=== PATIENT | female | born 1930 | race Caucasian/White ===

== ENCOUNTER 2017-02-08 11:37 | Inpatient (IN) | payer OTHER ==
[~2017-02-08] VITALS: Ht 167.6 cm; Wt 59.6 kg
[~2017-02-08 11:37] MED LIST: ETOMIDATE 20 MG/10 ML ONE; PROPOFOL 10 MG/ML, 100ML IV ONE; VECURONIUM 10 MG ONE
[2017-02-08] MEDS ORDERED: SODIUM CHLORIDE FLUSH 10ML SYR IVF ONE (12:00)
[2017-02-08] MEDS ORDERED: SODIUM CHLORIDE 0.9% 1,000ML IVBOLUS ONE ×2 (12:00→13:30)
[2017-02-08] MEDS ORDERED: PLEASE ENTER ALLERGIES MC SCH ×2 (12:30)
[2017-02-08] MEDS ORDERED: PLEASE ENTER HEIGHT AND WEIGHT MC SCH (12:30)
[2017-02-08 12:58] LABS: BLOOD UREA NITROGEN 82 mg/dL (7-18)
[2017-02-08 13:05] LABS: ASPARTATE AMINO TRANSFERASE 59 U/L (15-37)
[2017-02-08 13:43] LABS: IS PT STATUS REG ER OR PRE ER? YES
[2017-02-08] MEDS ORDERED: LOSA100T6 PO (13:50)
[2017-02-08] MEDS ORDERED: LEVO112T4 PO (13:50)
[2017-02-08] MEDS ORDERED: METO-99 PO (13:50)
[2017-02-08] MEDS ORDERED: LOVA40TA2 PO (13:54)
[2017-02-08] MEDS ORDERED: HYDR-3343 PO (13:54)
[2017-02-08] MEDS ORDERED: CEFTRIAXONE PMX 1GM/50ML 50 ML IVPB ONE (14:30)
[2017-02-08] MEDS ORDERED: methylPREDNISolone SOD SUCC 125 MG/2 ML ONE (14:34)
[2017-02-08 14:39] LABS: ABG COLLECTION SITE RIGHT RADIAL
[2017-02-08 14:40] LABS: COLLATERAL CIRCULATION TESTING NORMAL
[2017-02-08] MEDS ORDERED: CEFTRIAXONE PMX 1GM/50ML 50 ML ONE (14:42)
[2017-02-08] MEDS ORDERED: LABETALOL 5MG/ML, 20ML IVPush PRN (15:00)
[2017-02-08] MEDS ORDERED: BISACODYL 10 MG SUPP PR PRN (15:00)
[2017-02-08] MEDS ORDERED: ENOXAPARIN 40 MG/0.4 ML SQ SCH (15:00)
[2017-02-08] MEDS: methylPREDNISolone SOD SUCC 125 MG/2 ML IVPush SCH ×2 (15:12→21:19)
[2017-02-08] MEDS ORDERED: LIDOCAINE-MPF 1%, 2ML ENDO PRN (15:30)
[2017-02-08] MEDS: ALBUTEROL/IPRATROPIUM 2.5MG/0.5MG, 3 ML INLINE SCH ×3 (15:30→22:22)
[2017-02-08] MEDS ORDERED: PHARMACY MAY ADJ FOR RENAL FX MC SCH (15:30)
[2017-02-08] MEDS: SODIUM CHLORIDE 0.9% 1,000 ML IV SCH (15:31)
[2017-02-08] MEDS: PROPOFOL 100 ML IV PRN ×2 (15:36→22:46)
[2017-02-08] MEDS ORDERED: ENOXAPARIN 40 MG/0.4 ML ONE (16:56)
[2017-02-08 19:23] LABS: DAU SCREEN DISCLAIMER
[2017-02-08 19:49] LABS: IS PT STATUS REG ER OR PRE ER? NO
[2017-02-08] MEDS: FAMOTIDINE 20 MG/2 ML IVPush SCH (21:19)
[2017-02-08 23:12] VITALS: BP 142/46
[2017-02-08 23:30] VITALS: BP 128/72
[2017-02-09] MEDS: SODIUM CHLORIDE 0.9% 1,000 ML IV SCH ×3 (01:20→21:47)
[2017-02-09 01:25] LABS: IS PT STATUS REG ER OR PRE ER? NO
[2017-02-09] MEDS: ALBUTEROL/IPRATROPIUM 2.5MG/0.5MG, 3 ML INLINE SCH ×6 (03:30→22:00)
[2017-02-09] MEDS: methylPREDNISolone SOD SUCC 125 MG/2 ML IVPush SCH ×4 (03:51→21:19)
[2017-02-09 04:00] VITALS: BP 152/45
[2017-02-09 04:29] LABS: ABG COLLECTION SITE RIGHT RADIAL; COLLATERAL CIRCULATION TESTING NORMAL
[2017-02-09 04:55] LABS: ASPARTATE AMINO TRANSFERASE 46 U/L (15-37); BLOOD UREA NITROGEN 55 mg/dL (7-18)
[2017-02-09] MEDS: ASPIRIN 81 MG TABLET CHEW PO SCH (05:56)
[2017-02-09] MEDS ORDERED: ASPIRIN 325 MG TABLET EC PO SCH (06:00)
[2017-02-09] MEDS: FAMOTIDINE 20 MG/2 ML IVPush SCH (09:08)
[2017-02-09] MEDS: PROPOFOL 100 ML IV PRN ×2 (09:22→21:19)
[2017-02-09] MEDS ORDERED: hydrALAzine 20 MG/ML, 1ML IV PRN (11:00)
[2017-02-09] MEDS ORDERED: DIGOXIN 0.25 MG/ML, 2ML ONE (11:59)
[2017-02-09] MEDS ORDERED: DIGOXIN 0.25 MG/ML, 2ML IVPush ONE ×2 (12:00)
[2017-02-09] MEDS ORDERED: DILTIAZEM 5 MG/ML, 5ML ONE (12:13)
[2017-02-09] MEDS ORDERED: FILTER 0.22 MICRON IV PRN (12:30)
[2017-02-09] MEDS ORDERED: AMIODARONE 150 MG in DEXTROSE 5% 100 ML IV ONE ×2 (12:30→16:00)
[2017-02-09] MEDS ORDERED: DILTIAZEM 5 MG/ML, 5ML IVPush ONE (12:30)
[2017-02-09] MEDS ORDERED: SODIUM CHLORIDE 0.9%, 250ML IVBOLUS ONE (12:45)
[2017-02-09] MEDS ORDERED: HEPARIN 25,000 UNITS/500ML PMX 500 ML IV PRN (13:00)
[2017-02-09] MEDS ORDERED: HEPARIN 5,000 UNITS/ML, 1ML IV PRN (13:00)
[2017-02-09] MEDS ORDERED: HEPARIN 5,000 UNITS/ML, 1ML IV ONE (13:00)
[2017-02-09] MEDS ORDERED: MIDAZOLAM 1 MG/ML, 5ML ONE ×2 (14:18→17:58)
[2017-02-09] MEDS ORDERED: CEFAZOLIN 1,000 MG ONE (14:18)
[2017-02-09] MEDS ORDERED: CEFAZOLIN PMX 1GM/50ML 50 ML ONE (14:18)
[2017-02-09] MEDS ORDERED: LIDOCAINE 2%, 20ML ONE (14:18)
[2017-02-09] MEDS ORDERED: FENTANYL PF 100 MCG/2ML ONE ×2 (14:18→17:58)
[2017-02-09] MEDS ORDERED: PHENYLEPHRINE 10 MG/ML ONE (14:58)
[2017-02-09] MEDS ORDERED: SODIUM CHLORIDE 0.9%, 500ML IVBOLUS ONE ×2 (16:30→20:00)
[2017-02-09] MEDS: CEFTRIAXONE PMX 1GM/50ML 50 ML IV SCH (16:46)
[2017-02-09] MEDS ORDERED: ALBUTEROL SULFATE 2.5 MG/3 ML ONE (17:07)
[2017-02-09] MEDS ORDERED: NOREPINEPHRINE 1 MG/ML, 4ML ONE (17:23)
[2017-02-09] MEDS ORDERED: LIDOCAINE 1%, 20ML ONE (17:34)
[2017-02-09] MEDS ORDERED: NOREPINEPHRINE 4 MG in SODIUM CHLORIDE 0.9% 246 ML IV PRN (18:00)
[2017-02-09] MEDS ORDERED: LIDOCAINE 1%, 50ML ONE (18:05)
[2017-02-09] MEDS ORDERED: MIDAZOLAM 1 MG/ML, 2ML IVPush ONE (18:15)
[2017-02-09] MEDS ORDERED: FENTANYL PF 100 MCG/2ML IVPush ONE (18:15)
[2017-02-09] MEDS: AMIODARONE 900 MG in DEXTROSE 5% 482 ML IV PRN (18:30)
[2017-02-09] MEDS: SODIUM CHLORIDE FLUSH 10ML SYR IVF SCH (21:20)
[2017-02-10] MEDS: ALBUTEROL/IPRATROPIUM 2.5MG/0.5MG, 3 ML INLINE SCH ×6 (02:43→21:34)
[2017-02-10] MEDS: methylPREDNISolone SOD SUCC 125 MG/2 ML IVPush SCH ×4 (03:17→20:34)
[2017-02-10 04:24] LABS: ABG COLLECTION SITE LEFT RADIAL; COLLATERAL CIRCULATION TESTING NORMAL
[2017-02-10] MEDS: PROPOFOL 100 ML IV PRN ×2 (04:31→15:58)
[2017-02-10 05:00] VITALS: BP 154/60
[2017-02-10] MEDS: SODIUM CHLORIDE 0.9% 1,000 ML IV SCH ×2 (05:29→16:04)
[2017-02-10] MEDS: ASPIRIN 81 MG TABLET CHEW PO SCH (06:10)
[2017-02-10] MEDS ORDERED: FILTER 0.22 MICRON IV PRN (08:30)
[2017-02-10] MEDS: SODIUM CHLORIDE FLUSH 10ML SYR IVF SCH ×2 (08:37→20:34)
[2017-02-10] MEDS: FAMOTIDINE 20 MG/2 ML IVPush SCH (08:38)
[2017-02-10] MEDS: AMIODARONE 900 MG in DEXTROSE 5% 482 ML IV PRN (16:03)
[2017-02-10] MEDS: CEFTRIAXONE PMX 1GM/50ML 50 ML IV SCH (16:05)
[2017-02-11] MEDS: PROPOFOL 100 ML IV PRN ×4 (00:18→20:11)
[2017-02-11] MEDS: ALBUTEROL/IPRATROPIUM 2.5MG/0.5MG, 3 ML INLINE SCH ×6 (02:18→22:34)
[2017-02-11] MEDS: methylPREDNISolone SOD SUCC 125 MG/2 ML IVPush SCH ×3 (03:32→22:06)
[2017-02-11 04:29] LABS: ABG COLLECTION SITE RIGHT RADIAL; COLLATERAL CIRCULATION TESTING NORMAL
[2017-02-11] MEDS: ASPIRIN 81 MG TABLET CHEW PO SCH (05:24)
[2017-02-11 05:30] VITALS: BP 136/63
[2017-02-11 07:46] LABS: BLOOD UREA NITROGEN 26 mg/dL (7-18)
[2017-02-11] MEDS: SODIUM CHLORIDE 0.9% 1,000 ML IV SCH (08:25)
[2017-02-11] MEDS: FAMOTIDINE 20 MG/2 ML IVPush SCH (08:25)
[2017-02-11] MEDS ORDERED: OXYcodone 5 MG/5 ML ORAL.SOL UDC PO PRN (09:30)
[2017-02-11] MEDS: ENOXAPARIN 40 MG/0.4 ML SQ SCH (10:54)
[2017-02-11] MEDS: SODIUM CHLORIDE FLUSH 10ML SYR IVF SCH ×2 (10:55→22:06)
[2017-02-11] MEDS: AMIODARONE 200 MG TABLET PO SCH ×2 (10:56→22:24)
[2017-02-11] MEDS: CEFTRIAXONE PMX 1GM/50ML 50 ML IV SCH (16:03)
[2017-02-12] MEDS: ALBUTEROL/IPRATROPIUM 2.5MG/0.5MG, 3 ML INLINE SCH ×6 (03:30→22:52)
[2017-02-12 04:20] LABS: ABG COLLECTION SITE RIGHT RADIAL; COLLATERAL CIRCULATION TESTING NORMAL
[2017-02-12] MEDS: SODIUM CHLORIDE 0.9% 1,000 ML IV SCH (05:58)
[2017-02-12] MEDS: ASPIRIN 81 MG TABLET CHEW PO SCH (05:58)
[2017-02-12 06:28] LABS: BLOOD UREA NITROGEN 20 mg/dL (7-18)
[2017-02-12] MEDS ORDERED: MAGNESIUM SULFATE PMX 2GM/50ML 50 ML IV ONE (07:00)
[2017-02-12] MEDS ORDERED: POTASSIUM CHLORIDE 10% 40 MEQ/30 ML UDC PO ONE (07:00)
[2017-02-12] MEDS: PROPOFOL 100 ML IV PRN ×2 (07:37→16:31)
[2017-02-12] MEDS: FAMOTIDINE 20 MG/2 ML IVPush SCH (08:40)
[2017-02-12] MEDS: methylPREDNISolone SOD SUCC 125 MG/2 ML IVPush SCH ×2 (08:41→21:06)
[2017-02-12] MEDS: ENOXAPARIN 40 MG/0.4 ML SQ SCH (08:41)
[2017-02-12] MEDS: AMIODARONE 200 MG TABLET PO SCH ×2 (08:41→21:06)
[2017-02-12] MEDS: SODIUM CHLORIDE FLUSH 10ML SYR IVF SCH ×2 (08:43→21:06)
[2017-02-12] MEDS: METOPROLOL TARTRATE 25 MG TABLET PO SCH ×2 (10:20→18:09)
[2017-02-12] MEDS ORDERED: FUROSEMIDE 20 MG/2 ML IV ONE (12:30)
[2017-02-12] MEDS: CEFTRIAXONE PMX 1GM/50ML 50 ML IV SCH (15:56)
[2017-02-13] MEDS: PROPOFOL 100 ML IV PRN ×2 (02:46→16:30)
[2017-02-13] MEDS: ALBUTEROL/IPRATROPIUM 2.5MG/0.5MG, 3 ML INLINE SCH ×6 (03:23→22:30)
[2017-02-13 04:24] LABS: ABG COLLECTION SITE LEFT RADIAL; COLLATERAL CIRCULATION TESTING NORMAL
[2017-02-13] MEDS: SODIUM CHLORIDE 0.9% 1,000 ML IV SCH (05:28)
[2017-02-13] MEDS: METOPROLOL TARTRATE 25 MG TABLET PO SCH ×2 (05:31→18:23)
[2017-02-13] MEDS: ASPIRIN 81 MG TABLET CHEW PO SCH (05:31)
[2017-02-13 06:45] LABS: BLOOD UREA NITROGEN 25 mg/dL (7-18)
[2017-02-13] MEDS ORDERED: FUROSEMIDE 20 MG/2 ML IV ONE (08:00)
[2017-02-13] MEDS: AMIODARONE 200 MG TABLET PO SCH ×2 (09:49→22:09)
[2017-02-13] MEDS: FAMOTIDINE 20 MG/2 ML IVPush SCH (09:49)
[2017-02-13] MEDS: methylPREDNISolone SOD SUCC 40 MG/ML IVPush SCH (09:50)
[2017-02-13] MEDS: ENOXAPARIN 40 MG/0.4 ML SQ SCH (09:51)
[2017-02-13] MEDS: SODIUM CHLORIDE FLUSH 10ML SYR IVF SCH ×2 (09:51→22:09)
[2017-02-13] MEDS: CEFTRIAXONE PMX 1GM/50ML 50 ML IV SCH (14:03)
[2017-02-14] MEDS: ALBUTEROL/IPRATROPIUM 2.5MG/0.5MG, 3 ML INLINE SCH ×6 (02:00→22:20)
[2017-02-14] MEDS: PROPOFOL 100 ML IV PRN (04:17)
[2017-02-14] MEDS: SODIUM CHLORIDE 0.9% 1,000 ML IV SCH ×2 (04:19→21:28)
[2017-02-14 04:34] LABS: ABG COLLECTION SITE LEFT RADIAL; COLLATERAL CIRCULATION TESTING NORMAL
[2017-02-14] MEDS: ASPIRIN 81 MG TABLET CHEW PO SCH (06:08)
[2017-02-14] MEDS: METOPROLOL TARTRATE 25 MG TABLET PO SCH ×2 (06:08→17:50)
[2017-02-14 06:19] LABS: ASPARTATE AMINO TRANSFERASE 81 U/L (15-37); BLOOD UREA NITROGEN 29 mg/dL (7-18)
[2017-02-14] MEDS: FAMOTIDINE 20 MG/2 ML IVPush SCH (08:50)
[2017-02-14] MEDS: SODIUM CHLORIDE FLUSH 10ML SYR IVF SCH ×2 (08:50→21:24)
[2017-02-14] MEDS: methylPREDNISolone SOD SUCC 40 MG/ML IVPush SCH (08:50)
[2017-02-14] MEDS: DOCUSATE 100 MG CAPSULE PO PRN (08:50)
[2017-02-14] MEDS: POLYETHYLENE GLYCOL 17 GM PACKET PO PRN (08:50)
[2017-02-14] MEDS: AMIODARONE 200 MG TABLET PO SCH (08:51)
[2017-02-14] MEDS: ENOXAPARIN 40 MG/0.4 ML SQ SCH (08:51)
[2017-02-14] MEDS: MORPHINE SULFATE 4 MG/ML, 1ML IVPush PRN ×2 (09:16→17:36)
[2017-02-14] MEDS: CEFTRIAXONE PMX 1GM/50ML 50 ML IV SCH (14:09)
[2017-02-15] MEDS: PROPOFOL 100 ML IV PRN (00:05)
[2017-02-15] MEDS: ALBUTEROL/IPRATROPIUM 2.5MG/0.5MG, 3 ML INLINE SCH ×4 (02:05→14:38)
[2017-02-15 04:34] LABS: ABG COLLECTION SITE RIGHT RADIAL; COLLATERAL CIRCULATION TESTING NORMAL
[2017-02-15 05:26] LABS: ASPARTATE AMINO TRANSFERASE 68 U/L (15-37); BLOOD UREA NITROGEN 29 mg/dL (7-18)
[2017-02-15] MEDS: ASPIRIN 81 MG TABLET CHEW PO SCH (05:53)
[2017-02-15] MEDS: METOPROLOL TARTRATE 25 MG TABLET PO SCH ×2 (05:53→17:48)
[2017-02-15] MEDS: FAMOTIDINE 20 MG/2 ML IVPush SCH (08:17)
[2017-02-15] MEDS: ENOXAPARIN 40 MG/0.4 ML SQ SCH (08:17)
[2017-02-15] MEDS: SODIUM CHLORIDE FLUSH 10ML SYR IVF SCH ×2 (08:17→21:15)
[2017-02-15] MEDS: methylPREDNISolone SOD SUCC 40 MG/ML IVPush SCH (08:17)
[2017-02-15] MEDS: AMIODARONE 200 MG TABLET PO SCH (08:18)
[2017-02-15] MEDS: POTASSIUM CHLORIDE 10% 20 MEQ/15 ML UDC PO SCH ×2 (08:31→21:19)
[2017-02-15 10:19] LABS: ABG COLLECTION SITE RIGHT RADIAL; COLLATERAL CIRCULATION TESTING NORMAL
[2017-02-15] MEDS: CEFTRIAXONE PMX 1GM/50ML 50 ML IV SCH (14:05)
[2017-02-15] MEDS: ALBUTEROL/IPRATROPIUM 2.5MG/0.5MG, 3 ML NPPB SCH ×3 (14:56→23:22)
[2017-02-15] MEDS ORDERED: ALBUTEROL/IPRATROPIUM 2.5MG/0.5MG, 3 ML NPPB PRN (15:00)
[2017-02-16] MEDS: ALBUTEROL/IPRATROPIUM 2.5MG/0.5MG, 3 ML NPPB SCH ×6 (02:30→22:25)
[2017-02-16 04:50] LABS: ABG COLLECTION SITE LEFT RADIAL; COLLATERAL CIRCULATION TESTING NORMAL
[2017-02-16 05:14] LABS: BLOOD UREA NITROGEN 29 mg/dL (7-18)
[2017-02-16 05:18] LABS: ASPARTATE AMINO TRANSFERASE 47 U/L (15-37)
[2017-02-16] MEDS: ASPIRIN 81 MG TABLET CHEW PO SCH (05:58)
[2017-02-16] MEDS: METOPROLOL TARTRATE 25 MG TABLET PO SCH ×2 (05:59→18:39)
[2017-02-16] MEDS: ENOXAPARIN 40 MG/0.4 ML SQ SCH (09:34)
[2017-02-16] MEDS: methylPREDNISolone SOD SUCC 40 MG/ML IVPush SCH (09:34)
[2017-02-16] MEDS: FAMOTIDINE 20 MG/2 ML IVPush SCH (09:34)
[2017-02-16] MEDS: LOSARTAN 50MG TABLET PO SCH (09:34)
[2017-02-16] MEDS: AMIODARONE 200 MG TABLET PO SCH (09:35)
[2017-02-16] MEDS: SODIUM CHLORIDE FLUSH 10ML SYR IVF SCH ×2 (09:35→20:37)
[2017-02-16] MEDS: CEFTRIAXONE PMX 1GM/50ML 50 ML IV SCH (13:55)
[2017-02-16] MEDS ORDERED: SODIUM CHLORIDE 0.9% 1,000 ML IV SCH (14:34)
[2017-02-17 04:54] LABS: ABG COLLECTION SITE RIGHT RADIAL; COLLATERAL CIRCULATION TESTING NORMAL
[2017-02-17] MEDS: METOPROLOL TARTRATE 25 MG TABLET PO SCH ×2 (05:43→18:43)
[2017-02-17] MEDS: ASPIRIN 81 MG TABLET CHEW PO SCH (05:43)
[2017-02-17 05:50] LABS: ASPARTATE AMINO TRANSFERASE 24 U/L (15-37); BLOOD UREA NITROGEN 29 mg/dL (7-18)
[2017-02-17] MEDS: ALBUTEROL/IPRATROPIUM 2.5MG/0.5MG, 3 ML NPPB SCH ×5 (06:55→22:00)
[2017-02-17] MEDS: LOSARTAN 50MG TABLET PO SCH (10:16)
[2017-02-17] MEDS: AMIODARONE 200 MG TABLET PO SCH (10:16)
[2017-02-17] MEDS: SODIUM CHLORIDE FLUSH 10ML SYR IVF SCH ×2 (10:17→20:57)
[2017-02-17] MEDS: FAMOTIDINE 20 MG/2 ML IVPush SCH (10:17)
[2017-02-17] MEDS: methylPREDNISolone SOD SUCC 40 MG/ML IVPush SCH (10:17)
[2017-02-17] MEDS: ENOXAPARIN 40 MG/0.4 ML SQ SCH (13:32)
[2017-02-17] MEDS: CEFTRIAXONE PMX 1GM/50ML 50 ML IV SCH (13:33)
[2017-02-18 04:47] LABS: ABG COLLECTION SITE RIGHT RADIAL; COLLATERAL CIRCULATION TESTING NORMAL
[2017-02-18 05:29] LABS: BLOOD UREA NITROGEN 32 mg/dL (7-18)
[2017-02-18] MEDS: ASPIRIN 81 MG TABLET CHEW PO SCH (06:13)
[2017-02-18] MEDS: ALBUTEROL/IPRATROPIUM 2.5MG/0.5MG, 3 ML NPPB SCH ×3 (07:28→14:18)
[2017-02-18] MEDS ORDERED: BUPIVACAINE/PF 0.5% ONE (07:29)
[2017-02-18] MEDS ORDERED: EPINEPHRINE 1 MG/ML, 1ML ONE (07:29)
[2017-02-18] MEDS ORDERED: FENTANYL PF 250 MCG/5ML ONE (07:48)
[2017-02-18] MEDS ORDERED: TALC 30 GM AERO.PWD INTRAPL ONE (07:50)
[2017-02-18] MEDS ORDERED: PHENYLEPHRINE 10 MG/ML ONE (08:07)
[2017-02-18] MEDS ORDERED: NEOSTIGMINE 1 MG/ML, 10ML ONE (08:07)
[2017-02-18] MEDS ORDERED: GLYCOPYRROLATE 0.2MG/1ML ONE (08:07)
[2017-02-18] MEDS ORDERED: PROPOFOL 10 MG/ML, 20ML ONE (08:07)
[2017-02-18] MEDS ORDERED: ROCURONIUM 10 MG/ML ONE (08:07)
[2017-02-18] MEDS ORDERED: BUPIVACAINE/PF-EPI 0.5% 1:200K INFIL ONE (08:51)
[2017-02-18] MEDS: LOSARTAN 50MG TABLET PO SCH (09:00)
[2017-02-18] MEDS: FAMOTIDINE 20 MG/2 ML IVPush SCH (10:48)
[2017-02-18] MEDS: ENOXAPARIN 40 MG/0.4 ML SQ SCH (10:48)
[2017-02-18] MEDS: AMIODARONE 200 MG TABLET PO SCH (10:48)
[2017-02-18] MEDS: SODIUM CHLORIDE FLUSH 10ML SYR IVF SCH ×2 (10:49→21:07)
[2017-02-18 10:50] LABS: ABG COLLECTION SITE ARTERIAL LINE
[2017-02-18] MEDS: ALBUTEROL/IPRATROPIUM 2.5MG/0.5MG, 3 ML INLINE SCH ×3 (12:00→20:10)
[2017-02-18] MEDS ORDERED: FENTANYL PF 100 MCG/2ML IVPush PRN (12:00)
[2017-02-18] MEDS ORDERED: PHARMACY MAY ADJ FOR RENAL FX MC SCH (12:00)
[2017-02-18] MEDS ORDERED: LIDOCAINE-MPF 1%, 2ML ENDO PRN (12:00)
[2017-02-18] MEDS: FAMOTIDINE 20 MG/2 ML IV SCH ×2 (12:00→23:33)
[2017-02-18] MEDS ORDERED: SODIUM CHLORIDE 0.9%, 500ML IVBOLUS ONE ×2 (12:00→16:30)
[2017-02-18] MEDS: CEFTRIAXONE PMX 1GM/50ML 50 ML IV SCH (14:43)
[2017-02-18] MEDS ORDERED: NOREPINEPHRINE 4 MG in SODIUM CHLORIDE 0.9% 246 ML IV PRN (16:30)
[2017-02-18] MEDS: METOPROLOL TARTRATE 25 MG TABLET PO SCH (18:00)
[2017-02-19] MEDS: ALBUTEROL/IPRATROPIUM 2.5MG/0.5MG, 3 ML INLINE SCH ×3 (02:10→10:40)
[2017-02-19 05:10] LABS: ABG COLLECTION SITE ARTERIAL LINE
[2017-02-19 05:33] LABS: ASPARTATE AMINO TRANSFERASE 17 U/L (15-37); BLOOD UREA NITROGEN 35 mg/dL (7-18)
[2017-02-19] MEDS: METOPROLOL TARTRATE 25 MG TABLET PO SCH ×2 (05:57→20:24)
[2017-02-19] MEDS: ASPIRIN 81 MG TABLET CHEW PO SCH (06:23)
[2017-02-19] MEDS ORDERED: POTASSIUM PHOSPHATE 22 MEQ in SODIUM CHLORIDE 0.9% 500 ML IV ONE (09:00)
[2017-02-19] MEDS: AMIODARONE 200 MG TABLET PO SCH (09:49)
[2017-02-19] MEDS: FAMOTIDINE 20 MG/2 ML IVPush SCH (09:50)
[2017-02-19] MEDS: ENOXAPARIN 40 MG/0.4 ML SQ SCH (09:50)
[2017-02-19] MEDS: SODIUM CHLORIDE FLUSH 10ML SYR IVF SCH ×2 (10:10→21:12)
[2017-02-19] MEDS: ALBUTEROL/IPRATROPIUM 2.5MG/0.5MG, 3 ML NEB SCH ×3 (10:41→20:00)
[2017-02-19] MEDS: LOSARTAN 50MG TABLET PO SCH (11:55)
[2017-02-19] MEDS: CEFTRIAXONE PMX 1GM/50ML 50 ML IV SCH (13:44)
[2017-02-20 04:32] LABS: ABG COLLECTION SITE RIGHT RADIAL; COLLATERAL CIRCULATION TESTING NORMAL
[2017-02-20 05:36] LABS: BLOOD UREA NITROGEN 20 mg/dL (7-18)
[2017-02-20] MEDS: ASPIRIN 81 MG TABLET CHEW PO SCH (06:27)
[2017-02-20] MEDS: METOPROLOL TARTRATE 25 MG TABLET PO SCH ×2 (06:27→19:40)
[2017-02-20] MEDS: ALBUTEROL/IPRATROPIUM 2.5MG/0.5MG, 3 ML NEB SCH ×4 (07:05→20:00)
[2017-02-20] MEDS: LOSARTAN 50MG TABLET PO SCH (08:54)
[2017-02-20] MEDS: FAMOTIDINE 20 MG/2 ML IVPush SCH (08:54)
[2017-02-20] MEDS: AMIODARONE 200 MG TABLET PO SCH (08:54)
[2017-02-20] MEDS: ENOXAPARIN 40 MG/0.4 ML SQ SCH (08:54)
[2017-02-20] MEDS: SODIUM CHLORIDE FLUSH 10ML SYR IVF SCH ×2 (17:32→20:48)
[2017-02-21 03:34] LABS: BLOOD UREA NITROGEN 20 mg/dL (7-18)
[2017-02-21] MEDS: ASPIRIN 81 MG TABLET CHEW PO SCH (05:46)
[2017-02-21] MEDS: ALBUTEROL/IPRATROPIUM 2.5MG/0.5MG, 3 ML NEB SCH ×4 (06:30→20:00)
[2017-02-21] MEDS: METOPROLOL TARTRATE 25 MG TABLET PO SCH ×2 (07:12→17:40)
[2017-02-21] MEDS ORDERED: AcetaZOLAMIDE INJ 500 MG IVPush ONE (08:30)
[2017-02-21] MEDS: AMIODARONE 200 MG TABLET PO SCH (08:48)
[2017-02-21] MEDS: LOSARTAN 50MG TABLET PO SCH (08:48)
[2017-02-21] MEDS: ENOXAPARIN 40 MG/0.4 ML SQ SCH (08:49)
[2017-02-21] MEDS: FAMOTIDINE 20 MG/2 ML IVPush SCH (08:49)
[2017-02-21] MEDS: SODIUM CHLORIDE FLUSH 10ML SYR IVF SCH ×2 (08:49→22:36)
[2017-02-21 12:55] VITALS: BP 110/66
[2017-02-21 17:39] VITALS: BP 177/70
[2017-02-21 20:21] VITALS: BP 175/73
[2017-02-22 01:37] VITALS: BP 130/68
[2017-02-22 06:01] LABS: ABG COLLECTION SITE RIGHT RADIAL; COLLATERAL CIRCULATION TESTING NORMAL
[2017-02-22] MEDS: ASPIRIN 81 MG TABLET CHEW PO SCH (06:24)
[2017-02-22] MEDS: METOPROLOL TARTRATE 25 MG TABLET PO SCH ×2 (06:24→17:45)
[2017-02-22 06:27] LABS: BLOOD UREA NITROGEN 26 mg/dL (7-18)
[2017-02-22] MEDS: ALBUTEROL/IPRATROPIUM 2.5MG/0.5MG, 3 ML NEB SCH ×4 (06:39→20:13)
[2017-02-22 07:06] VITALS: BP 115/65
[2017-02-22] MEDS: LOSARTAN 50MG TABLET PO SCH ×2 (09:00→09:25)
[2017-02-22] MEDS: AMIODARONE 200 MG TABLET PO SCH (09:25)
[2017-02-22] MEDS: SODIUM CHLORIDE FLUSH 10ML SYR IVF SCH ×2 (09:26→22:27)
[2017-02-22 09:35] VITALS: BP 105/52
[2017-02-22 10:00] VITALS: BP 107/54
[2017-02-22] MEDS: ENOXAPARIN 40 MG/0.4 ML SQ SCH (10:10)
[2017-02-22 13:16] VITALS: BP 107/56
[2017-02-22 18:49] VITALS: BP 108/58
[2017-02-23 04:30] VITALS: BP 125/58
[2017-02-23 04:50] LABS: BLOOD UREA NITROGEN 25 mg/dL (7-18)
[2017-02-23 05:18] LABS: ABG COLLECTION SITE RIGHT RADIAL; COLLATERAL CIRCULATION TESTING NORMAL
[2017-02-23] MEDS: DOCUSATE 100 MG CAPSULE PO PRN (06:23)
[2017-02-23] MEDS: METOPROLOL TARTRATE 25 MG TABLET PO SCH ×2 (06:23→17:36)
[2017-02-23] MEDS: ASPIRIN 81 MG TABLET CHEW PO SCH (06:23)
[2017-02-23 07:01] VITALS: BP 117/58
[2017-02-23] MEDS: ALBUTEROL/IPRATROPIUM 2.5MG/0.5MG, 3 ML NEB SCH ×4 (07:30→20:31)
[2017-02-23] MEDS: AMIODARONE 200 MG TABLET PO SCH (08:58)
[2017-02-23] MEDS: LOSARTAN 50MG TABLET PO SCH (08:58)
[2017-02-23] MEDS: ENOXAPARIN 40 MG/0.4 ML SQ SCH (08:58)
[2017-02-23] MEDS: SODIUM CHLORIDE FLUSH 10ML SYR IVF SCH ×2 (08:58→21:57)
[2017-02-23 16:07] VITALS: BP 117/60
[2017-02-23 19:15] VITALS: BP 133/63
[2017-02-24 02:36] VITALS: BP 128/67
[2017-02-24 06:04] LABS: BLOOD UREA NITROGEN 27 mg/dL (7-18)
[2017-02-24] MEDS: POLYETHYLENE GLYCOL 17 GM PACKET PO PRN (06:37)
[2017-02-24] MEDS: ASPIRIN 81 MG TABLET CHEW PO SCH (06:37)
[2017-02-24] MEDS: METOPROLOL TARTRATE 25 MG TABLET PO SCH ×2 (06:48→17:23)
[2017-02-24 07:22] VITALS: BP 112/55
[2017-02-24] MEDS: ALBUTEROL/IPRATROPIUM 2.5MG/0.5MG, 3 ML NEB SCH ×4 (08:05→21:30)
[2017-02-24 08:54] VITALS: BP 113/62
[2017-02-24] MEDS: AMIODARONE 200 MG TABLET PO SCH (08:55)
[2017-02-24] MEDS: LOSARTAN 50MG TABLET PO SCH (08:55)
[2017-02-24] MEDS: ENOXAPARIN 40 MG/0.4 ML SQ SCH (08:56)
[2017-02-24] MEDS: SODIUM CHLORIDE FLUSH 10ML SYR IVF SCH ×2 (08:56→19:51)
[2017-02-24 13:39] VITALS: BP 114/60
[2017-02-24 17:23] VITALS: BP 119/58
[2017-02-24 19:53] VITALS: BP 132/62
[2017-02-25 01:45] VITALS: BP 119/65
[2017-02-25 05:21] VITALS: BP 131/68
[2017-02-25] MEDS: ASPIRIN 81 MG TABLET CHEW PO SCH (05:22)
[2017-02-25] MEDS: METOPROLOL TARTRATE 25 MG TABLET PO SCH ×2 (05:23→17:57)
[2017-02-25 06:15] LABS: BLOOD UREA NITROGEN 21 mg/dL (7-18)
[2017-02-25] MEDS: ALBUTEROL/IPRATROPIUM 2.5MG/0.5MG, 3 ML NEB SCH (07:00)
[2017-02-25 08:38] VITALS: BP 133/60
[2017-02-25] MEDS: ENOXAPARIN 40 MG/0.4 ML SQ SCH (09:28)
[2017-02-25] MEDS: AMIODARONE 200 MG TABLET PO SCH (09:28)
[2017-02-25] MEDS: LOSARTAN 50MG TABLET PO SCH (09:28)
[2017-02-25] MEDS: SODIUM CHLORIDE FLUSH 10ML SYR IVF SCH ×2 (09:29→21:00)
[2017-02-25 15:27] VITALS: BP 148/92
[2017-02-25] MEDS ORDERED: DOCUSATE 100 MG CAPSULE PO PRN (19:30)
[2017-02-25] MEDS ORDERED: BISACODYL 10 MG SUPP PR PRN (19:30)
[2017-02-25] MEDS ORDERED: POLYETHYLENE GLYCOL 17 GM PACKET PO PRN (19:30)
[2017-02-25] MEDS ORDERED: PHARMACY MAY ADJ FOR RENAL FX MC SCH ×2 (19:30)
[2017-02-25 21:44] VITALS: BP 157/68
[2017-02-26 00:32] VITALS: BP 133/73
[2017-02-26 05:26] LABS: BLOOD UREA NITROGEN 19 mg/dL (7-18)
[2017-02-26] MEDS: METOPROLOL TARTRATE 25 MG TABLET PO SCH ×2 (06:14→17:53)
[2017-02-26] MEDS: ASPIRIN 81 MG TABLET CHEW PO SCH (06:14)
[2017-02-26] MEDS: LOSARTAN 50MG TABLET PO SCH (09:00)
[2017-02-26] MEDS: SODIUM CHLORIDE FLUSH 10ML SYR IVF SCH ×2 (09:00→20:05)
[2017-02-26 09:05] VITALS: BP 100/51
[2017-02-26] MEDS: ENOXAPARIN 40 MG/0.4 ML SQ SCH (09:13)
[2017-02-26] MEDS: AMIODARONE 200 MG TABLET PO SCH (09:13)
[2017-02-26 13:16] VITALS: BP 122/62
[2017-02-26 17:52] VITALS: BP 137/66
[2017-02-26 19:50] VITALS: BP 118/67
[2017-02-27 02:06] VITALS: BP 139/70
[2017-02-27 06:19] LABS: ASPARTATE AMINO TRANSFERASE 16 U/L (15-37); BLOOD UREA NITROGEN 19 mg/dL (7-18)
[2017-02-27 07:10] VITALS: BP 163/67
[2017-02-27] MEDS: ASPIRIN 81 MG TABLET CHEW PO SCH (07:21)
[2017-02-27] MEDS: METOPROLOL TARTRATE 25 MG TABLET PO SCH ×2 (07:21→18:17)
[2017-02-27 09:25] VITALS: BP 103/54
[2017-02-27] MEDS: ENOXAPARIN 40 MG/0.4 ML SQ SCH (09:26)
[2017-02-27] MEDS: SODIUM CHLORIDE FLUSH 10ML SYR IVF SCH ×2 (09:26→20:19)
[2017-02-27] MEDS: LOSARTAN 50MG TABLET PO SCH (09:26)
[2017-02-27] MEDS: AMIODARONE 200 MG TABLET PO SCH (09:26)
[2017-02-27 13:03] VITALS: BP 102/55
[2017-02-27 18:16] VITALS: BP 131/57
[2017-02-27 20:13] VITALS: BP 118/61
[2017-02-28 00:04] VITALS: BP 104/59
[2017-02-28 05:24] VITALS: BP 116/69
[2017-02-28] MEDS: ASPIRIN 81 MG TABLET CHEW PO SCH (05:49)
[2017-02-28] MEDS: METOPROLOL TARTRATE 25 MG TABLET PO SCH (05:49)
[2017-02-28] MEDS: AMIODARONE 200 MG TABLET PO SCH (08:46)
[2017-02-28] MEDS: SODIUM CHLORIDE FLUSH 10ML SYR IVF SCH (08:46)
[2017-02-28 09:00] VITALS: BP 98/56
[2017-02-28] MEDS: LOSARTAN 50MG TABLET PO SCH (09:00)
[2017-02-28] MEDS ORDERED: ENOXAPARIN 40 MG/0.4 ML SQ SCH (09:30)
[2017-02-28 09:49] LABS: BLOOD UREA NITROGEN 21 mg/dL (7-18)
[2017-02-28 11:32] VITALS: BP 96/54
[2017-02-28] MEDS ORDERED: LOSARTAN 50MG TABLET PO SCH (12:00)
[2017-02-28 13:02] VITALS: BP 100/55
[2017-02-28] MEDS ORDERED: METO25TA35 PO (15:33)
[2017-02-28] MEDS ORDERED: LOSA50TA2 PO (15:33)
[2017-02-28] MEDS ORDERED: AMIO200T42 PO (15:33)
[2017-02-28] MEDS ORDERED: ASPI-515 PO (15:33)
[2017-03-01] MEDS ORDERED: LOSARTAN 50MG TABLET PO SCH (09:00)
== END 2017-02-28 16:26 | DRG 163 ==
LOC: ED 13:01 → EDIP 14:16 → CCU 17:08 → 5SO 02-21 12:36
PROVIDERS: ADMIT Hospitalist; ATTEND Hospitalist
PROC: 0T9B70Z Drainage of Bladder with Drainage Device, Via Natural or Artificial Opening (ICD-10-PCS; 2017-02-08)
PROC: 0BH17EZ Insertion of Endotracheal Airway into Trachea, Via Natural or Artificial Opening (ICD-10-PCS; 2017-02-08)
PROC: 5A1955Z Respiratory Ventilation, Greater than 96 Consecutive Hours (ICD-10-PCS; 2017-02-08)
PROC: 0JH606Z Insertion of Pacemaker, Dual Chamber into Chest Subcutaneous Tissue and Fascia, Open Approach (ICD-10-PCS; principal; 2017-02-09)
PROC: 02H63JZ Insertion of Pacemaker Lead into Right Atrium, Percutaneous Approach (ICD-10-PCS; 2017-02-09)
PROC: 02HK3JZ Insertion of Pacemaker Lead into Right Ventricle, Percutaneous Approach (ICD-10-PCS; 2017-02-09)
PROC: B5171ZZ Fluoroscopy of Left Subclavian Vein using Low Osmolar Contrast (ICD-10-PCS; 2017-02-09)
PROC: 5A2204Z Restoration of Cardiac Rhythm, Single (ICD-10-PCS; 2017-02-09)
PROC: 0W9B30Z Drainage of Left Pleural Cavity with Drainage Device, Percutaneous Approach (ICD-10-PCS; 2017-02-09)
PROC: 4A023N7 Measurement of Cardiac Sampling and Pressure, Left Heart, Percutaneous Approach (ICD-10-PCS; 2017-02-09)
PROC: B2111ZZ Fluoroscopy of Multiple Coronary Arteries using Low Osmolar Contrast (ICD-10-PCS; 2017-02-09)
PROC: 0B5P4ZZ Destruction of Left Pleura, Percutaneous Endoscopic Approach (ICD-10-PCS; 2017-02-18)
PROC: 0WCB4ZZ Extirpation of Matter from Left Pleural Cavity, Percutaneous Endoscopic Approach (ICD-10-PCS; 2017-02-18)
DX: J96.21 Acute and chronic respiratory failure with hypoxia (principal); G93.41 Metabolic encephalopathy; E43 Unspecified severe protein-calorie malnutrition; J86.0 Pyothorax with fistula; N17.9 Acute kidney failure, unspecified; T79.7XXA Traumatic subcutaneous emphysema, initial encounter; Z99.11 Dependence on respirator [ventilator] status; D68.69 Other thrombophilia; E87.2 Acidosis; J44.1 Chronic obstructive pulmonary disease with (acute) exacerbation; I24.8 Other forms of acute ischemic heart disease; I47.1 Supraventricular tachycardia; I48.92 Unspecified atrial flutter; J93.9 Pneumothorax, unspecified; I44.1 Atrioventricular block, second degree; J96.22 Acute and chronic respiratory failure with hypercapnia; I10 Essential (primary) hypertension; Y92.009 Unspecified place in unspecified non-institutional (private) residence as the place of occurrence of the external cause; B96.20 Unspecified Escherichia coli [E. coli] as the cause of diseases classified elsewhere; D53.9 Nutritional anemia, unspecified; D75.89 Other specified diseases of blood and blood-forming organs; E03.9 Hypothyroidism, unspecified; Z68.21 Body mass index [BMI] 21.0-21.9, adult; E78.5 Hyperlipidemia, unspecified; E87.6 Hypokalemia; I48.2 Chronic atrial fibrillation; Z99.81 Dependence on supplemental oxygen; Z87.891 Personal history of nicotine dependence; M40.209 Unspecified kyphosis, site unspecified; Z51.5 Encounter for palliative care; N30.90 Cystitis, unspecified without hematuria; Z66 Do not resuscitate; R74.0 Nonspecific elevation of levels of transaminase and lactic acid dehydrogenase [LDH]; Z78.1 Physical restraint status
CPT/HCPCS: 31500; 33208; 36415; 36569; 36600; 51702; 70450; 71010; 71250; 76937; 77001; 80048; 80053; 80307; 81001; 82040; 82550; 82607; 82746; 82803; 82805; 83605; 83735; 84100; 84145; 84443; 84478; 84484; 85025; 87040; 87070; 87077; 87081; 87086; 87186; 87205; 93005; 93306; 94002; 94003; 94150; 94640; 96361; 96365; 99156; 99157; C1729; C1779; C1785; C1892; J0171; J0690; J0696; J1650; J2250; J2704; J2710; J3010; J3490; J7620; C1751; J0282; J0360; J1120; J1160; J1940; J2370; J2920; J2930; J3475; J7030; J7040; J7050; J7060; J7512; Q9967; S0028